=== PATIENT | male | born 1970 | race Caucasian/White ===

== ENCOUNTER 2017-12-30 17:25 | Emergency (ER) | payer MEDICAID ==
[~2017-12-30] VITALS: Ht 185.4 cm; Wt 148.8 kg
[2017-12-30] MEDS ORDERED: HEARTBURN RELI150 MG PO (17:55)
[2017-12-30] MEDS ORDERED: KETOROLAC TROME10 MG PO (18:33)
== END 2017-12-30 18:48 | disposition home or self-care (01) ==
LOC: ED 17:25
DX: M25.561 Pain in right knee (principal); G89.29 Other chronic pain; Z88.2 Allergy status to sulfonamides; Z88.8 Allergy status to other drugs, medicaments and biological substances; Z79.899 Other long term (current) drug therapy
CPT/HCPCS: 73560; 99283